=== PATIENT | female | born 1950 | race Caucasian/White ===

== ENCOUNTER → 2017-03-15 | Outpatient (CLI) | payer OTHER ==
[2017-03-17 15:49] LABS: Stool Occult Bld Immuno 1 Negative (NEGATIVE)
== END | disposition home or self-care (01) ==
LOC: LAB 10:00 → LAB SHORT 10:00 → LAB FUT 01-03 10:40
PROVIDERS: Hospitalist
DX: Z12.11 Encounter for screening for malignant neoplasm of colon (principal)
CPT/HCPCS: G0328

== ENCOUNTER → 2020-10-26 | Outpatient (CLI) | payer MEDICARE ==
[2020-10-26 19:20] LABS: Appearance, Urine Clear (Clear); Bilirubin, Urine Neg (Neg); Blood, Urine 2+ (Neg); Color, Urine Yellow (P-Yellow); Glucose Qualitative, Urine Neg (Neg); Ketones, Urine Neg (Neg); Leukocyte Esterase, Urine Neg (Neg); Nitrite, Urine Neg (Neg); Protein, Urine Neg (Neg); Specific Gravity, Urine 1.015 (1.003-1.022); Urobilinogen, Urine NORM (Normal)
[2020-10-26 19:34] LABS: Bacteria Few /hpf; Red Blood Cells, Urine 0-2 /hpf (0-2); Squamous Epithelial Cells Few /hpf (Few); White Blood Cells, Urine 0-2 /hpf (0-5)
== END | disposition home or self-care (01) ==
LOC: LAB SHORT 18:15 → LAB 18:15
PROVIDERS: Hospitalist
DX: R31.29 Other microscopic hematuria (principal)
CPT/HCPCS: 81001

== ENCOUNTER 2021-05-02 05:57 | Day surgery (SDC) | payer MEDICARE ==
[~2021-05-02] VITALS: Ht 165.1 cm; Wt 55.9 kg
[~2021-05-02 05:57] MED LIST: CALCIUM PO; SERT50 PO; TRAM50 PO
[2021-05-02] MEDS ORDERED: OXAYDO5 M1 PO (11:12)
[2021-05-02] MEDS ORDERED: PROMETHAZINE12.5 M1 PO (11:13)
--- NOTE | 2021-05-02 11:30 | NUR ---
PT ARRIVED TO FLOOR AT 1100. A&O, VSS, 90% O2 ON RA, PUT 2L VIA NC & O2 AT 95%. PT IS ABLE TO WIGGLE HER FINGERS & REPORTS R HAND TO BE NUMB BUT CAN FEEL ME TOUCHING IT. REPORTS NAUSEA, MEDICATED X1 W/ZOFRAN. SIPPING ON WATER & JELLO.
--- NOTE | 2021-05-02 15:30 | NUR ---
DISCHARGE VSS ON RA. PT CLEARED THERAPY & IS AMBULATING WELL. DENIES DIZZINESS/LIGHTHEADEDNESS. DENIES N/V. TOLERATING PO INTAKE WELL. RX CALLED TO PHARMACY. DISCUSSED DISCHARGE INSTRUCTIONS, REMOVED IV. SENT X3 AQUACEL DRESSINGS & POLAR PACK & DISCHARGE INSTRUCTIONS W/ PATIENT. ESCORTED OUT VIA W/C.
== END 2021-05-02 15:30 | disposition home or self-care (01) ==
LOC: ORSCMMR 05:57 → ORD 07:30 → SURS 10:53 → ORSCMMR 15:30 → SURS 15:30
PROVIDERS: Orthopaedic Surgery
PROC: 0RRJ00Z Replacement of Right Shoulder Joint with Reverse Ball and Socket Synthetic Substitute, Open Approach (ICD-10-PCS; principal; 2021-05-02 07:30)
DX: M19.011 Primary osteoarthritis, right shoulder (principal); F32.A Depression, unspecified; M79.7 Fibromyalgia; Z79.899 Other long term (current) drug therapy; Z87.891 Personal history of nicotine dependence
CPT/HCPCS: 73030; 97116; 97161; 97530; A9270; C1713; C1776; J0171; J0696; J1100; J1885; J2250; J2405; J2704; J3010; J7120

== ENCOUNTER → 2023-03-08 | Outpatient (CLI) | payer OTHER ==
[~2023-03-08] MED LIST changes: +OXAYDO5 M1 PO; +PROMETHAZINE12.5 M1 PO
== END ==
LOC: LAB SHORT 12:03 → PLD 12:03
DX: D48.5 Neoplasm of uncertain behavior of skin (principal)
CPT/HCPCS: 88305

== ENCOUNTER → 2023-10-31 | Outpatient (CLI) | payer OTHER | LOC: LAB 13:15 → LAB SHORT 13:15 | DX: L08.0 Pyoderma (principal) | CPT/HCPCS: 87070; 87077; 87186; 87205 ==

== ENCOUNTER 2024-11-05 11:02 | Day surgery (SDC) | payer OTHER ==
[~2024-11-05] VITALS: Ht 165.1 cm; Wt 60.0 kg
[2024-11-05] VITALS (14 sets, daily range): BP systolic 120–150; BP diastolic 69–97
[~2024-11-05 11:02] MED LIST changes: +ALBU90OI INH; +Calcium Carbon500 MG PO
[2024-11-05] MEDS ORDERED: Albuterol 2.5 MG/3 ML VIAL INH PRN (11:45)
[2024-11-05] MEDS ORDERED: FentaNYL Citrate 50 MCG/ML 2 ML Injection IV PRN ×2 (11:45)
[2024-11-05] MEDS ORDERED: Ondansetron HCl 2 MG / ML 2ML Vial IV PRN ×2 (11:45→13:50)
[2024-11-05] MEDS ORDERED: HYDROmorphone HCl/Pf 1MG SYR IV PRN ×2 (11:45→13:45)
[2024-11-05] MEDS ORDERED: Phenylephrine HCl 100 MCG/ML-NS 10MLSYR (1MG/10ML) ONE ×2 (11:49→15:08)
[2024-11-05] MEDS ORDERED: Ropivacaine 0.5% HCl/Pf 123.125 MG,EPINEPHrine HCL 0.25 MG,Ketorolac Tromethamine 15 MG... INFIL SCH (12:00)
[2024-11-05] MEDS ORDERED: CeFAZolin Sodium 2,000 MG in NS 100 ML IV SCH ×2 (12:00→22:00)
[2024-11-05] MEDS ORDERED: Chlorhexidine Mouth Care 15 ML UDC MT SCH (12:00)
[2024-11-05] MEDS ORDERED: Tranexamic Acid 100 ML IV SCH (12:00)
--- NOTE | 2024-11-05 12:25 | NUR ---
Ambulatory in Day Surgery History, Chart, Medications and Allergies reviewed before start of procedure. Pre-Op teaching done. Pt verbalizes understanding. Patient States Post-Procedure ride home has been arranged.
[2024-11-05] MEDS ORDERED: Magnesium Hydroxide Conc 10 ML UDC PO PRN (13:45)
[2024-11-05] MEDS ORDERED: FLU VACC TS2025-26(6MOS UP)/PF 45 MCG/0.5 ML SYRINGE IM SCH (13:45)
[2024-11-05] MEDS ORDERED: Metoclopramide HCl 5MG / ML 2ML Vial IV PRN (13:50)
[2024-11-05] MEDS ORDERED: Ondansetron HCl 2 MG / ML 2ML Vial ONE (14:27)
[2024-11-05] MEDS ORDERED: Dexamethasone Sod Phos 10 MG/ML 1ML VIAL ONE (14:27)
[2024-11-05] MEDS ORDERED: ePHEDrine Sulfate 50 MG/ML 1ML Injection ONE (15:01)
--- NOTE | 2024-11-05 17:09 | NUR ---
PT TO ROOM 223 FROM PACU. ABLE TO WIGGLE TOES. POLAR PACK IN PLACE. POST OP VS STARTED AND STABLE. PT PROVIDED SNACKS. WILL CONTINUE TO MONITOR.
[2024-11-05] MEDS ORDERED: NS 250 ML IV PRN (23:35)
[2024-11-06 04:13] VITALS: BP 146/80
--- NOTE | 2024-11-06 05:21 | NUR ---
[employer]AC[employer] SUMMARY PT IS POD 0 FOR L TOTAL KNEE. DRESSING TO KNEE C/D/I. PT HAS BEEN UP TO THE BATHROOM SEVERAL TIMES TONIGHT AND HAS VOIDED. DOES WELL WITH AMBULATION. PAIN HAS BEEN MANAGED WITH 1 TAB OXYCODONE. TOLERATING PO INTAKE. VSS, WCTM.
[2024-11-06 05:41] LABS: BASOPHILS ABSOLUTE AUTO 0.01 K/mm3 (0.00-0.23); BASOPHILS PERCENT AUTO 0 % (0-2); EOSINOPHILS ABSOLUTE AUTO 0.00 K/mm3 (0.00-0.68); EOSINOPHILS PERCENT AUTO 0 % (0-6); Hematocrit 37.1 % (33.0-51.0); Hemoglobin 11.9 g/dL (11.5-16.0); IMMATURE GRAN ABSOLUTE AUTO 0.02 K/mm3 (0.00-0.10); IMMATURE GRAN PERCENT AUTO 0 % (0-1); LYMPHOCYTES ABSOLUTE AUTO 0.91 K/mm3 (0.84-5.20); LYMPHOCYTES PERCENT AUTO 15 % (21-46); MONOCYTES ABSOLUTE AUTO 0.29 K/mm3 (0.16-1.47); MONOCYTES PERCENT AUTO 5 % (4-13); Mean Corpuscular HGB Conc 32.1 g/dL (31.5-36.5); Mean Corpuscular Volume 91 fL (80-100); NEUTROPHILS ABSOLUTE AUTO 4.76 K/mm3 (1.96-9.15); NEUTROPHILS PERCENT AUTO 80 % (41-73); NRBC ABSOLUTE 0.00 K/mm3 (0.00-0.02); NRBC Auto 0.0 /100 WBC (0.0-0.2); Platelet Count 173 K/mm3 (150-400); RDW Coefficient Variation 13.5 % (11.7-14.2); RDW Standard Deviation 45.3 fL (35.1-46.3)
[2024-11-06 06:37] LABS: Anion Gap 10.0 mmol/L (3-11); Blood Urea Nitrogen 11.0 mg/dL (8-24); CO2, Blood 25.0 mmol/L (21-32); Calcium, Blood 8.5 mg/dL (8.5-10.1); Chloride, Blood 104.0 mmol/L (98-108); Creatinine, Blood 0.63 mg/dL (0.40-1.00); Glucose, Blood 98.0 mg/dL (70-99); Magnesium, Blood 2.1 mg/dL (1.6-2.4); Potassium, Blood 4.5 mmol/L (3.5-5.5); Sodium, Blood 134.0 mmol/L (136-145)
[2024-11-06 07:34] VITALS: BP 129/82
[2024-11-06] MEDS ORDERED: ASPI81CH PO (08:58)
[2024-11-06] MEDS ORDERED: SULTRIDS PO (08:59)
[2024-11-06] MEDS ORDERED: ACET500 PO (08:59)
[2024-11-06] MEDS ORDERED: ONDA4ODT MM (09:00)
[2024-11-06] MEDS ORDERED: Trimethoprim/Sulfamethoxazole DS Tab PO SCH (09:00)
== END 2024-11-06 09:50 | disposition home or self-care (01) ==
LOC: ORSCMMR 11:02 → ORD 14:30 → SURS 16:55 → ORSCMMR 11-06 09:50
PROVIDERS: Orthopaedic Surgery
PROC: 0SRD0JA Replacement of Left Knee Joint with Synthetic Substitute, Uncemented, Open Approach (ICD-10-PCS; principal; 2024-11-05 14:30)
DX: M17.12 Unilateral primary osteoarthritis, left knee (principal); Z87.891 Personal history of nicotine dependence; J43.9 Emphysema, unspecified; F32.A Depression, unspecified; Z79.899 Other long term (current) drug therapy; Z96.611 Presence of right artificial shoulder joint; M79.7 Fibromyalgia
CPT/HCPCS: 36415; 73560-LT; 80048; 83735; 85025; 97110; 97116; 97162; 97530; A9270; C1713; C1776; J0166; J0690; J0735; J1100; J1885; J2371; J2405; J2704; J2795; J3373; J7050; J7120